=== PATIENT | female | born 1995 | race Caucasian/White ===

== ENCOUNTER 2018-01-04 08:20 | Emergency (ER) | payer SELFPAY ==
[2018-01-04] MEDS ORDERED: Ibuprofen 600 MG Tab PO ONE (08:35)
--- NOTE | 2018-01-04 08:37 | EDM.PDOC ---
ED HPI GENERAL MEDICAL PROBLEM - General Chief Complaint: Lower Extremity Injury/Pain Stated Complaint: L LEG INJURY Time Seen by Provider: 01/04/18 08:35 Source of Information: Reports: Patient History Limitations: Reports: No Limitations - History of Present Illness INITIAL COMMENTS - FREE TEXT/NARRATIVE: History of present illness: []Patient twisted her knee and dislocated her patella prior to arrival. Patient states she has done this in the past. Patient arrives by ambulance awake and alert complaining of left knee pain, she denies any other injuries. Review of systems: As per history of present illness and below otherwise all systems reviewed and negative. Past medical history: As per history of present illness and as reviewed below otherwise noncontributory. Surgical history: As per history of present illness and as reviewed below otherwise noncontributory. Social history: No reported history of drug or alcohol abuse. Family history: As per history of present illness and as reviewed below otherwise noncontributory. Physical exam: General: Well developed, well nourished in NAD HEENT: Atraumatic, normocephalic, pupils reactive, negative for conjunctival pallor or scleral icterus, mucous membranes moist, throat clear, neck supple, nontender, trachea midline. Lungs: Clear to auscultation, breath sounds equal bilaterally, chest nontender. Heart: S1S2, regular, negative for clicks, rubs, or JVD. Abdomen: Soft, nondistended, nontender. Negative for masses or hepatosplenomegaly. Negative for costovertebral tenderness. Pelvis: Stable nontender. Genitourinary: Deferred. Rectal: Deferred. Extremities: Atraumatic, negative for cords or calf pain. Neurovascular unremarkable. Neuro: Awake, alert, oriented. Cranial nerves II through XII unremarkable. Cerebellum unremarkable. Motor and sensory unremarkable throughout. Exam nonfocal. Diagnostics: []Labs and urine all negative Therapeutics: [] Impression: []Dehydration Plan: []Increase fluids follow-up with PMD Motrin for pain. Definitive disposition and diagnosis as appropriate pending reevaluation and review of above. Treatments [employer]TY COOK: Reports: Other (see below) Other Treatments FOREIGN [employer] SPECIALTY COOK: L knee immobilization Left Knee Pain Score (Numeric/FACES): 8 - Related Data Allergies Allergy/AdvReac Type Severity Reaction Status Date / Time No Known Allergies Allergy Verified 01/04/18 08:30 Home Meds: Home Meds Ranitidine HCl [Ranitidine] 150 mg PO DAILY 01/04/18 [History] Review of Systems - Review of Systems Review Of Systems: See Below (See history of present illness) ED EXAM, GENERAL - Physical Exam Exam: See Below (See history of present illness) Course - Vital Signs Last Recorded V/S: Last Vital Signs Temp 97.6 F 01/04/18 08:29 Pulse 70 01/04/18 08:29 Resp 18 01/04/18 08:29 BP 135/74 01/04/18 08:29 Pulse Ox 100 01/04/18 08:29 - Orders/Labs/Meds Orders: Active Orders 24 hr Category Date Time Status Splinting [RC] ASDIRECTED Care 01/04/18 08:35 Active Knee 3V Lt [CR] Stat Exams 01/04/18 08:35 Ordered Meds: Medications Discontinued Medications Generic Name Dose Route Start Last Admin Trade Name Freq PRN Reason Stop Dose Admin Ibuprofen 600 mg 01/04/18 08:35 01/04/18 08:40 Motrin PO 01/04/18 08:36 600 mg ONETIME ONE Administration Departure - Departure Time of Disposition: 09:10 Disposition: Home, Self-Care 01 Condition: Good Clinical Impression: Dehydration - Discharge Information Forms: ED Department Discharge Additional Instructions: The following information is given to patients seen in the emergency department who are being discharged to home. This information is to outline your options for follow-up care. We provide all patients seen in our emergency department with a follow-up referral. The need for follow-up, as well as the timing and circumstances, are variable depending upon the specifics of your emergency department visit. If you don't have a primary care physician on staff, we will provide you with a referral. We always advise you to contact your personal physician following an emergency department visit to inform them of the circumstance of the visit and for follow-up with them and/or the need for any referrals to a consulting specialist. The emergency department will also refer you to a specialist when appropriate. This referral assures that you have the opportunity for follow-up care with a specialist. All of these measure are taken in an effort to provide you with optimal care, which includes your follow-up. Under all circumstances we always encourage you to contact your private physician who remains a resource for coordinating your care. When calling for follow-up care, please make the office aware that this follow-up is from your recent emergency room visit. If for any reason you are refused follow-up, please contact the [facility] Emergency Department at and asked to speak to the emergency department charge nurse. [facility] [address] [place] [id number] - My Orders Last 24 Hours: My Active Orders 01/04/18 08:35 Splinting [RC] ASDIRECTED Knee 3V Lt [CR] Stat - Assessment/Plan Last 24 Hours: My Active Orders 01/04/18 08:35 Splinting [RC] ASDIRECTED Knee 3V Lt [CR] Stat
--- NOTE | 2018-01-04 09:57 | CR ---
EXAMINATION: Left knee HISTORY: Pain COMPARISON: 06/16/2016 TECHNIQUE: 3 views FINDINGS/IMPRESSION: There is no acute osseous abnormality, dislocation, or fracture. Bone mineraliza tion and joint spaces are preserved. No soft tissue swelling or joint effusion.
== END 2018-01-04 10:50 | disposition home or self-care (01) ==
LOC: MW.ED 08:20
DX: S83.002A Unspecified subluxation of left patella, initial encounter (principal); E86.0 Dehydration; Z79.899 Other long term (current) drug therapy; X50.1XXA Overexertion from prolonged static or awkward postures, initial encounter
CPT/HCPCS: 73562; 99283; A9270

== ENCOUNTER 2021-05-26 07:56 | Emergency (ER) | payer BC ==
[2021-05-26] MEDS ORDERED: Sodium Chloride 0.9% 2.5 ML Syringe FLUSH PRN (08:33)
[2021-05-26] MEDS ORDERED: Ketorolac 15 MG/ML SDV IVPUSH ONE (08:33)
[2021-05-26] MEDS ORDERED: fentaNYL 50 MCG/ML SDV IVPUSH ONE ×2 (08:33→10:20)
[2021-05-26] MEDS ORDERED: Sodium Chloride 0.9% 10 ML Syringe FLUSH PRN (08:33)
[2021-05-26] MEDS ORDERED: Ondansetron 4 MG/2 ML SDV IVPUSH ONE (08:33)
[2021-05-26] MEDS ORDERED: Sodium Chloride 0.9% 1,000 ML IV ONE (08:33)
--- NOTE | 2021-05-26 08:38 | EDM.PDOC ---
ED HPI GENERAL MEDICAL PROBLEM - General Chief Complaint: Abdominal Pain Stated Complaint: SEVERE ABDOMINAL PAIN Time Seen by Provider: 05/26/21 08:27 - History of Present Illness INITIAL COMMENTS - FREE TEXT/NARRATIVE: HISTORY AND PHYSICAL: History of present illness: This is a 25-year-old female with no significant past medical history who presents to the ER today secondary to pain in her upper abdomen that started yesterday at approximately 5 AM when she woke up. Patient reports that she went to see her PCP yesterday and they abdoulaye blood tests on her and told her that her liver enzymes were slightly elevated. Patient reports that her pain had improved and then woke up this morning again with severe pain to her upper abdomen. Patient reports that she was told by her primary care doctor yesterday that it was either inflammation in her stomach or gas. Patient denies any recent fevers, shakes, chills. Patient reports nausea with no vomiting or diarrhea. Patient denies any dysuria, frequency, urgency, chest pain, shortness of breath. Patient denies any change in color of her stools or urine. Patient reports that last p.o. intake was yesterday evening when she ate pizza rolls and ice cream prior to going to sleep. Patient denies any history of hypertension, diabetes, liver, lung, kidney problems. Patient denies any abdominal or chest surgeries in the past. Patient has no known drug allergies. Patient reports that she utilizes medicinal marijuana but denies any alcohol or drug use. Review of systems: As per history of present illness and below otherwise all systems reviewed and negative. Past medical history: As per history of present illness and as reviewed below otherwise noncontributory. Surgical history: As per history of present illness and as reviewed below otherwise noncontributory. Social history: No reported history of drug abuse. Family history: As per history of present illness and as reviewed below otherwise noncontributory. Physical exam: This patient was seen and evaluated during the 2019 SARS-CoV-2 novel coronavirus pandemic period. Community viral transmission is ongoing at time of this encounter and the emergency department is operating under pandemic response procedures. Constitutional: Patient is oriented to person, place, and time. Appears well- developed and well-nourished. No distress. HEENT: Moist mucous membranes Head: Normocephalic and atraumatic Eyes: Right eye exhibits no discharge. Left eye exhibits no discharge. No scleral icterus Neck: Normal range of motion. No tracheal deviation present. Cardiovascular: Normal rate and regular rhythm. Pulmonary: Effort normal, no respiratory distress. Abd: Soft, nondistended, no rebound/guarding, no psoas or obturator signs, no tenderness at Mcberney's point, no Wright's sign. Pt does not present with an exam that would be consistent with an acute surgical abdomen at this time. Patient with tenderness palpation to her right upper quadrant but no distinct Wright sign is appreciable. Musculoskeletal: Normal range of motion Neurologic: Alert and oriented to person, place and time. Skin: Urania, warm and dry. Psychiatric: Normal mood and affect. Behavior is normal. Judgment and thought content normal. Nursing note and vital signs have been reviewed Diagnostics: Ultrasound right upper quadrant: Cholelithiasis no other findings of acute cholecystitis. No bile duct dilatation. Labs all within normal limits except elevated ALT/AST. Therapeutics: [] Assessment and plan: This is a 25-year-old female who presents to the ER today with complaint of abdominal pain and on exam patient does have significant right upper quadrant pain without a Wright sign. Patient's presentation appears to be consistent with likely biliary colic. Patient will have a CBC, CMP, lipase and an ultrasound of the right upper quadrant performed. Patient will be given IV fluids, Zofran, Toradol, fentanyl to assist with her pain and discomfort prior to the ultrasound. 10:30 AM: Patient has been reevaluated by me. Patient reports that she had significant improvement in her pain and discomfort after the injections however she reports that she is starting to feel the pain returning again. I have discussed with the patient the results of the ultrasound and her labs. We will add an acute hepatitis panel secondary to her elevated ALT and AST. Although this may be related to her biliary colic I am concerned that other causes such as viral hepatitis might be a culprit. This test is a send out so I have informed the patient that she should follow-up with her primary care physician once again in order to obtain the results and follow-up of her hepatitis panel. At this time, I do not feel that the patient will require inpatient or observation level of care in the hospital and can be managed as an outpatient for her biliary colic. We will send the patient home with a prescription for nausea medicine as well as Bentyl and pain medications to assist with her biliary colic and will refer her to see our general surgeon for outpatient management and potential elective surgical intervention as needed. Reassessment at the time of disposition demonstrates that the patient is in no acute distress. The patient has remained stable throughout the entire ED visit and is without objective evidence for acute process requiring urgent intervention or hospitalization. The patient is stable for discharge, counseling is provided as documented above, discussed symptomatic treatment and specific conditions for return. I have spoken with the patient/caregiver and discussed todays findings, in addition to providing specific details for the plan of care. Questions are answered and there is agreement with the plan. Definitive disposition and diagnosis as appropriate pending reevaluation and review of above. right upper abdominal quaddrant Pain Score (Numeric/FACES): 8 - Related Data Allergies Allergy/AdvReac Type Severity Reaction Status Date / Time No Known Allergies Allergy Verified 05/26/21 08:24 Home Meds: Home Meds . 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: patient states she was told she had ovarian cysts Musculoskeletal History: Reports: Other (See Below) Other Musculoskeletal History: frequent L knee dislocation Neurological History: Reports: None Psychiatric History: Reports: None Endocrine/Metabolic History: Reports: None Hematologic History: Reports: None Immunologic History: Reports: None Oncologic (Cancer) History: Reports: None Dermatologic History: Reports: None - Infectious Disease History Infectious Disease History: Reports: None - Past Surgical History Head Surgeries/Procedures: Reports: None HEENT Surgical History: Reports: Tonsillectomy Social & Family History - Family History Family Medical History: No Pertinent Family History - Tobacco Use Tobacco Use Status *Q: Never Tobacco User Second Hand Smoke Exposure: No - Caffeine Use Caffeine Use: Reports: None - Recreational Drug Use Recreational Drug Use: No ED ROS GENERAL - Review of Systems Review Of Systems: See Below ED EXAM, GENERAL - Physical Exam Exam: See Below Course - Vital Signs Last Recorded V/S: Last Vital Signs Temp 97.1 F 05/26/21 08:19 Pulse 68 05/26/21 08:19 Resp 18 06/30/21 08:19 BP 152/87 H 05/26/21 08:19 Pulse Ox 98 05/26/21 08:19 - Orders/Labs/Meds Orders: Active Orders 24 hr Category Date Time Status HEPATITIS PANEL (4) [REF] Stat Lab 05/26/21 10:47 Received Sodium Chloride 0.9% [Saline Flush] Med 05/26/21 08:33 Active 10 ml FLUSH ASDIRECTED PRN Sodium Chloride 0.9% [Saline Flush] Med 05/26/21 08:33 Active 2.5 ml FLUSH ASDIRECTED PRN Saline Lock Insert [OM.PC] Stat Oth 05/26/21 08:33 Ordered Medication Orders Sodium Chloride (Sodium Chloride 0.9% 10 Ml Syringe) 10 ml FLUSH ASDIRECTED PRN PRN Reason: Keep Vein Open Last Admin: 05/26/21 08:41 Dose: 10 ml Documented by: BROOKE Sodium Chloride (Sodium Chloride 0.9% 2.5 Ml Syringe) 2.5 ml FLUSH ASDIRECTED PRN PRN Reason: Keep Vein Open Last Admin: 05/26/21 08:41 Dose: 2.5 ml Documented by: BROOKE Labs: Laboratory Tests 05/26/21 05/26/21 05/26/21 Range/Units 08:24 08:24 08:24 WBC 7.03 (4.0-11.0) K/uL RBC 4.70 (4.30-5.90) M/uL Hgb 13.9 (12.0-16.0) g/dL Hct 42.3 (36.0-46.0) % MCV 90.0 (80.0-98.0) fL MCH 29.6 (27.0-32.0) pg MCHC 32.9 (31.0-37.0) g/dL RDW Std Deviation 41.9 (28.0-62.0) fl RDW Coeff of Serena 13 (11.0-15.0) % Plt Count 282 (150-400) K/uL MPV 11.00 (7.40-12.00) fL Neut % (Auto) 65.4 (48.0-80.0) % Lymph % (Auto) 24.8 (16.0-40.0) % Barren % (Auto) 9.2 (0.0-15.0) % Eos % (Auto) 0.3 (0.0-7.0) % Baso % (Auto) 0.3 (0.0-1.5) % Neut # (Auto) 4.6 (1.4-5.7) K/uL Lymph # (Auto) 1.7 (0.6-2.4) K/uL Barren # (Auto) 0.7 (0.0-0.8) K/uL Eos # (Auto) 0.0 (0.0-0.7) K/uL Baso # (Auto) 0.0 (0.0-0.1) K/uL Nucleated RBC % 0.0 /100WBC Nucleated RBCs # 0 K/uL Sodium 140 (136-145) mmol/L Potassium 4.1 (3.5-5.1) mmol/L Chloride 104 (98-107) mmol/L Carbon Dioxide 26.2 (21.0-32.0) mmol/L BUN 9 (7.0-18.0) mg/dL Creatinine 0.8 (0.6-1.0) mg/dL Est Cr Clr Drug Dosing 104.54 mL/min Estimated GFR (MDRD) > 60.0 ml/min Glucose 107 H (74-106) mg/dL Calcium 8.6 (8.5-10.1) mg/dL Total Bilirubin 1.0 (0.2-1.0) mg/dL AST 419 H (15-37) IU/L ALT 510 H (14-63) IU/L Alkaline Phosphatase 103 (46-116) U/L Total Protein 7.7 (6.4-8.2) g/dL Albumin 3.6 (3.4-5.0) g/dL Globulin 4.1 H (2.6-4.0) g/dL Albumin/Globulin Ratio 0.9 (0.9-1.6) Lipase 98 (73-393) U/L HCG, Qual NEGATIVE (NEG) Urine Color Urine Appearance Urine pH (5.0-8.0) Ur Specific Hobson (1.001-1.035) Urine Protein (NEGATIVE) mg/dL Urine Glucose (UA) (NEGATIVE) mg/dL Urine Ketones (NEGATIVE) mg/dL Urine Occult Blood (NEGATIVE) Urine Nitrite (NEGATIVE) Urine Bilirubin (NEGATIVE) Urine Ictotest Urine Urobilinogen (<2.0) EU/dL Ur Leukocyte Esterase (NEGATIVE) Urine RBC (0-2/HPF) Urine WBC (0-5/HPF) Ur Epithelial Cells (NONE-FEW) Amorphous Sediment (NEGATIVE) Urine Bacteria (NEGATIVE) Urine Mucus (NONE-MOD) 05/26/21 Range/Units 09:42 WBC (4.0-11.0) K/uL RBC (4.30-5.90) M/uL Hgb (12.0-16.0) g/dL Hct (36.0-46.0) % MCV (80.0-98.0) fL MCH (27.0-32.0) pg MCHC (31.0-37.0) g/dL RDW Std Deviation (28.0-62.0) fl RDW Coeff of Serena (11.0-15.0) % Plt Count (150-400) K/uL MPV (7.40-12.00) fL Neut % (Auto) (48.0-80.0) % Lymph % (Auto) (16.0-40.0) % Barren % (Auto) (0.0-15.0) % Eos % (Auto) (0.0-7.0) % Baso % (Auto) (0.0-1.5) % Neut # (Auto) (1.4-5.7) K/uL Lymph # (Auto) (0.6-2.4) K/uL Barren # (Auto) (0.0-0.8) K/uL Eos # (Auto) (0.0-0.7) K/uL Baso # (Auto) (0.0-0.1) K/uL Nucleated RBC % /100WBC Nucleated RBCs # K/uL Sodium (136-145) mmol/L Potassium (3.5-5.1) mmol/L Chloride (98-107) mmol/L Carbon Dioxide (21.0-32.0) mmol/L BUN (7.0-18.0) mg/dL Creatinine (0.6-1.0) mg/dL Est Cr Clr Drug Dosing mL/min Estimated GFR (MDRD) ml/min Glucose (74-106) mg/dL Calcium (8.5-10.1) mg/dL Total Bilirubin (0.2-1.0) mg/dL AST (15-37) IU/L ALT (14-63) IU/L Alkaline Phosphatase (46-116) U/L Total Protein (6.4-8.2) g/dL Albumin (3.4-5.0) g/dL Globulin (2.6-4.0) g/dL Albumin/Globulin Ratio (0.9-1.6) Lipase (73-393) U/L HCG, Qual (NEG) Urine Color ORANGE Urine Appearance CLOUDY Urine pH 6.0 (5.0-8.0) Ur Specific Hobson 1.025 (1.001-1.035) Urine Protein NEGATIVE (NEGATIVE) mg/dL Urine Glucose (UA) NEGATIVE (NEGATIVE) mg/dL Urine Ketones NEGATIVE (NEGATIVE) mg/dL Urine Occult Blood LARGE H (NEGATIVE) Urine Nitrite NEGATIVE (NEGATIVE) Urine Bilirubin SMALL H (NEGATIVE) Urine Ictotest POSITIVE Urine Urobilinogen 1.0 (<2.0) EU/dL Ur Leukocyte Esterase NEGATIVE (NEGATIVE) Urine RBC 15-17 (0-2/HPF) Urine WBC 0-1 (0-5/HPF) Ur Epithelial Cells FEW (NONE-FEW) Amorphous Sediment LIGHT (NEGATIVE) Urine Bacteria 2+ H (NEGATIVE) Urine Mucus LIGHT (NONE-MOD) Meds: Medications Generic Name Dose Route Start Last Admin Trade Name Freq PRN Reason Stop Dose Admin Sodium Chloride 10 ml 05/26/21 08:33 05/26/21 08:41 Sodium Chloride 0.9% 10 Ml Syringe FLUSH 10 ml ASDIRECTED PRN Administration Keep Vein Open Sodium Chloride 2.5 ml 05/26/21 08:33 05/26/21 08:41 Sodium Chloride 0.9% 2.5 Ml Syringe FLUSH 2.5 ml ASDIRECTED PRN Administration Keep Vein Open Discontinued Medications Generic Name Dose Route Start Last Admin Trade Name Freq PRN Reason Stop Dose Admin Dicyclomine HCl 10 mg 05/26/21 10:21 Dicyclomine 10 Mg Cap PO 05/26/21 10:22 ONETIME ONE Fentanyl 50 mcg 05/26/21 08:33 05/26/21 08:40 Fentanyl 50 Mcg/Ml Sdv IVPUSH 05/26/21 08:34 50 mcg ONETIME ONE Administration Fentanyl 50 mcg 05/26/21 10:20 Fentanyl 50 Mcg/Ml Sdv IVPUSH 05/26/21 10:21 ONETIME ONE Sodium Chloride 1,000 mls @ 999 mls/hr 05/26/21 08:33 05/26/21 08:40 Normal Saline IV 05/26/21 09:33 999 mls/hr .Bolus ONE Administration Ketorolac Tromethamine 15 mg 05/26/21 08:33 05/26/21 08:40 Ketorolac 15 Mg/Ml Sdv IVPUSH 05/26/21 08:34 15 mg ONETIME ONE Administration Ketorolac Tromethamine 15 mg 05/26/21 10:20 05/26/21 10:57 Ketorolac 15 Mg/Ml Sdv IVPUSH 05/26/21 10:21 15 mg Q6H STA Administration Ondansetron HCl 4 mg 05/26/21 08:33 05/26/21 08:41 Ondansetron 4 Mg/2 Ml Sdv IVPUSH 05/26/21 08:34 4 mg ONETIME ONE Administration Departure - Departure Time of Disposition: 11:04 Disposition: Home, Self-Care 01 Condition: Good Clinical Impression: Biliary colic, Elevated transaminase level Abdominal pain Qualifiers: Abdominal location: right upper quadrant Qualified Code(s): R10.11 - Right upper quadrant pain - Discharge Information Instructions: Biliary Colic, Adult, Abdominal Pain, Adult Referrals: Marily Rangel MD [Primary Care Provider] - Forms: ED Department Discharge Additional Instructions: Your seen and evaluated in the ER today secondary to pain to your right upper quadrant which appears to be secondary to gallstones within your gallbladder. You will be given the phone number to call tomorrow for an appointment to see one of the surgery doctor so they can follow you and make recommendations for possible surgical intervention. As we discussed, your liver enzymes are elevated so a acute hepatitis panel has been sent to determine whether or not you might have hepatitis A, B, C. Please make an appointment see your family doctor within the next week so they can reevaluate your abdominal pain and follow-up on your hepatitis panel as well. You will be given a prescription for nausea medicine as well as pain medicine to take to assist you with your symptoms. As we discussed, please avoid any greasy or fatty foods over the next several days to assist with the discomfort that you are having. [facility] - General Surgery Professional Building [address] [place] [address], [address] [place] [address] The following information is given to patients seen in the emergency department who are being discharged to home. This information is to outline your options for follow-up care. We provide all patients seen in our emergency department with a follow-up referral. The need for follow-up, as well as the timing and circumstances, are variable depending upon the specifics of your emergency department visit. If you don't have a primary care physician on staff, we will provide you with a referral. We always advise you to contact your personal physician following an emergency department visit to inform them of the circumstance of the visit and for follow-up with them and/or the need for any referrals to a consulting specialist. The emergency department will also refer you to a specialist when appropriate. This referral assures that you have the opportunity for follow-up care with a specialist. All of these measure are taken in an effort to provide you with optimal care, which includes your follow-up. Under all circumstances we always encourage you to contact your private physician who remains a resource for coordinating your care. When calling for follow-up care, please make the office aware that this follow-up is from your recent emergency room visit. If for any reason you are refused follow-up, please contact the [facility] Emergency Department at and asked to speak to the emergency department charge nurse. [facility] - Primary Care [address] [place] [id number] [facility] [address] [place] [id number] Sepsis Event Note (ED) - Evaluation Sepsis Screening Result: No Definite Risk - Focused Exam Vital Signs: Vital Signs Temp Pulse Resp BP Pulse Ox 05/26/21 08:19 97.1 F 68 18 152/87 H 98 - My Orders Last 24 Hours: My Active Orders 05/26/21 08:33 Sodium Chloride 0.9% [Saline Flush] 10 ml FLUSH ASDIRECTED PRN Sodium Chloride 0.9% [Saline Flush] 2.5 ml FLUSH ASDIRECTED PRN Saline Lock Insert [OM.PC] Stat 05/26/21 10:47 HEPATITIS PANEL (4) [REF] Stat - Assessment/Plan Last 24 Hours: My Active Orders 05/26/21 08:33 Sodium Chloride 0.9% [Saline Flush] 10 ml FLUSH ASDIRECTED PRN Sodium Chloride 0.9% [Saline Flush] 2.5 ml FLUSH ASDIRECTED PRN Saline Lock Insert [OM.PC] Stat 05/26/21 10:47 HEPATITIS PANEL (4) [REF] Stat
[2021-05-26 09:09] LABS: BLOOD UREA NITROGEN,BUN 9 mg/dL (7.0-18.0); CARBON DIOXIDE,CO2 26.2 mmol/L (21.0-32.0); CHLORIDE,CL 104 mmol/L (98-107); GLUCOSE RANDOM 107 mg/dL (74-106); LIPASE 98 U/L (73-393); POTASSIUM,K 4.1 mmol/L (3.5-5.1); SODIUM,NA 140 mmol/L (136-145)
--- NOTE | 2021-05-26 09:39 | US ---
HISTORY: Right upper quadrant pain. TECHNIQUE: Ultrasound of the right upper quadrant. COMPARISON: None. FINDINGS: Liver has normal echogenicity. No liver mass. No intrahepatic bile duct dilation. Cholelithiasis. No gallbladder wall thickening or pericholecystic fluid. Common duct measures 4 mm in caliber, within normal limits. Pancreas is not well visualized. Right kidney measures 10.8 cm long axis. Normal renal parenchymal thickness and echogenicity. No renal mass. No hydronephrosis. IMPRESSION: Cholelithiasis. No other findings of acute cholecystitis. No bile duct dilation. Dictated by Rakesh Moura MD @ 05/26/2021 9:38:[address] Rakesh Moura @ May 26 2021 9:38AM
[2021-05-26] MEDS ORDERED: Ketorolac 15 MG/ML SDV IVPUSH STA (10:20)
[2021-05-26] MEDS ORDERED: Dicyclomine 10 MG Cap PO ONE (10:21)
== END 2021-05-26 12:02 | disposition home or self-care (01) ==
LOC: MW.ED 07:56
DX: K80.50 Calculus of bile duct without cholangitis or cholecystitis without obstruction (principal); R74.01 Elevation of levels of liver transaminase levels
CPT/HCPCS: 36415; 76705; 80053; 80074; 81001; 83690; 84703; 85025; 96374; 96375; 96376; 99284; A9270; J1885; J2405; J3010; J7030

== ENCOUNTER 2021-06-22 08:03 | Day surgery (SDC) | payer BC ==
--- NOTE | 2021-06-22 07:42 | PCM.PREANE ---
Preanesthetic Assessment - Anesthesia/Transfusion/Family Hx Anesthesia History: Prior Anesthesia Without Reaction Transfusion History: No Prior Transfusion(s) - Review of Systems General: No Symptoms Pulmonary: No Symptoms Cardiovascular: No Symptoms Gastrointestinal: Abdominal Pain Neurological: No Symptoms Other: Reports: None - Physical Assessment NPO Status Date: 06/22/21 NPO Status Time: 00:00 Height: 5 ft 7 in Weight: 278 lb ASA Class: 3 Mental Status: Alert & Oriented x3 Airway Class: Mallampati = 2 Dentition: Reports: Normal Dentition ROM/Head Extension: Full Lungs: Clear to Auscultation, Normal Respiratory Effort Cardiovascular: Regular Rate, Regular Rhythm - Allergies Allergies/Adverse Reactions: Allergies Allergy/AdvReac Type Severity Reaction Status Date / Time No Known Allergies Allergy Verified 06/16/21 11:57 - Anesthesia Plan Pre-Op Medication Ordered: Other (scopolamine) - Acknowledgements Anesthesia Type Planned: General Anesthesia Pt an Appropriate Candidate for the Planned Anesthesia: Yes Alternatives and Risks of Anesthesia Discussed w Pt/Guardian: Yes Pt/Guardian Understands and Agrees with Anesthesia Plan: Yes PreAnesthesia Questionnaire - Past Health History Medical/Surgical History: Denies Medical/Surgical History HEENT History: Reports: Allergic Rhinitis, Other (See Below) Other HEENT History: has dental braces Cardiovascular History: Reports: None Respiratory History: Reports: None Gastrointestinal History: Reports: Cholelithiasis, GERD Other Gastrointestinal History: symptomatic cholelithiasis Genitourinary History: Reports: None 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 (See Below) Other OB/BYN History: patient states she was told she had ovarian cysts Musculoskeletal History: Reports: Other (See Below) Other Musculoskeletal History: chronic left knee pain Neurological History: Reports: None Psychiatric History: Reports: Anxiety, Depression Endocrine/Metabolic History: Reports: Obesity/BMI 30+ Hematologic History: Reports: None Immunologic History: Reports: None Oncologic (Cancer) History: Reports: None Dermatologic History: Reports: None - Infectious Disease History Infectious Disease History: Reports: None - Past Surgical History Head Surgeries/Procedures: Reports: None HEENT Surgical History: Reports: Tonsillectomy Cardiovascular Surgical History: Reports: None Respiratory Surgical History: Reports: None GI Surgical History: Reports: None Female Surgical History: Reports: None Endocrine Surgical History: Reports: None Neurological Surgical History: Reports: None Musculoskeletal Surgical History: Reports: None Oncologic Surgical History: Reports: None Dermatological Surgical History: Reports: None - SUBSTANCE USE Tobacco Use Within Last Twelve Months: Other (See Below) Recreational Drug Type: Reports: Marijuana/Hashish - HOME MEDS Home Medications: Home Meds Ondansetron [Zofran ODT] 4 mg PO Q6H PRN #12 tab.dis 05/26/21 [Rx] Pantoprazole Sodium [Protonix] 40 mg PO DAILY 06/16/21 [History] norgestimate-ethinyl estradioL [Hendry-Linyah 28 Tablet] 1 tab PO DAILY 06/16/21 [History] - CURRENT (IN HOUSE) MEDS Current Meds: Current Medications Albuterol (Albuterol 0.083% 2.5 Mg/3 Ml Neb Soln) 2.5 mg NEB ONETIME PRN PRN Reason: Wheezing Droperidol (Droperidol 5 Mg/2 Ml Sdv) 0.625 mg IVPUSH ONETIME PRN PRN Reason: Nausea/Vomiting Fentanyl (Fentanyl 100 Mcg/2 Ml Sdv) 50 mcg IVPUSH Q5M PRN PRN Reason: Pain (mild 1-3) Hydromorphone HCl (Hydromorphone 2 Mg/Ml Syringe) 1 mg IVPUSH Q10M PRN PRN Reason: Pain (moderate 4-6) Lactated Ringer's (Ringers, Lactated) 1,000 mls @ 125 mls/hr IV ASDIRECTED SANTI Metoclopramide HCl (Metoclopramide 10 Mg/2 Ml Sdv) 10 mg IVPUSH ONETIME PRN PRN Reason: Nausea/Vomiting Morphine Sulfate (Morphine 10 Mg/Ml Syringe) 2 mg IVPUSH Q10M PRN PRN Reason: Pain (severe 7-10) Naloxone HCl (Naloxone 0.4 Mg/Ml Syringe) 0.1 mg IVPUSH ASDIRECTED PRN PRN Reason: Respiratory Depression Ondansetron HCl (Ondansetron 4 Mg/2 Ml Sdv) 4 mg IVPUSH ONETIME PRN PRN Reason: Nausea/Vomiting Sodium Chloride (Sodium Chloride 0.9% 2.5 Ml Syringe) 2.5 ml FLUSH ASDIRECTED PRN PRN Reason: Keep Vein Open Sodium Chloride (Sodium Chloride 0.9% 10 Ml Sdv) 10 ml IV ASDIRECTED PRN PRN Reason: IV Use Sodium Chloride (Sodium Chloride 0.9% 10 Ml Syringe) 10 ml FLUSH ASDIRECTED PRN PRN Reason: Keep Vein Open Sodium Chloride (Sodium Chloride 0.9% 2.5 Ml Syringe) 2.5 ml FLUSH ASDIRECTED PRN PRN Reason: Keep Vein Open Sodium Chloride (Sodium Chloride 0.9% 10 Ml Syringe) 10 ml FLUSH ASDIRECTED PRN PRN Reason: Keep Vein Open Discontinued Medications Cefazolin Sodium/Dextrose 2 gm (/ Premix) 50 mls @ 100 mls/hr IV ONETIME ONE Stop: 06/21/21 09:38 Scopolamine (Scopolamine 1.5 Mg Transdermal Patch) Confirm Administered Dose 1.5 mg .ROUTE .STK-MED ONE Stop: 06/22/21 07:10
[~2021-06-22 08:03] MED LIST: Albuterol 0.083% 2.5 MG/3 ML Neb Soln NEB PRN; HYDROmorphone 2 MG/ML Syringe IVPUSH PRN; Lactated Ringers 1,000 ML IV SCH; Metoclopramide 10 MG/2 ML SDV IVPUSH PRN; Morphine 2 MG/ML SYRINGE IVPUSH PRN; Naloxone 0.4 MG/ML Syringe IVPUSH PRN; Ondansetron 4 MG/2 ML SDV IVPUSH PRN; Scopolamine 1.5 MG Transdermal Patch ONE; Sodium Chloride 0.9% 10 ML SDV IV PRN; Sodium Chloride 0.9% 10 ML Syringe FLUSH PRN; Sodium Chloride 0.9% 2.5 ML Syringe FLUSH PRN; ceFAZolin 2 GM in Premix Bag 1 BAG IV ONE; fentaNYL 100 MCG/2 ML SDV IVPUSH PRN
[2021-06-22] MEDS ORDERED: Dexamethasone 4 MG/ML 5 ML MDV ONE (08:08)
[2021-06-22] MEDS ORDERED: Lidocaine 2% 5 ML SDV ONE (08:08)
[2021-06-22] MEDS ORDERED: Rocuronium Bromide 50 MG/5 ML Syringe ONE (08:08)
[2021-06-22] MEDS ORDERED: Ondansetron 4 MG/2 ML SDV ONE ×2 (08:08→11:28)
[2021-06-22] MEDS ORDERED: Succinylcholine/Sod PF 100 MG/5 ML SYRINGE IV ONE (08:08)
[2021-06-22] MEDS ORDERED: Sodium Chloride 0.9% 20 ML ONE (08:09)
[2021-06-22] MEDS ORDERED: ceFAZolin 1 GM Vial ONE (08:09)
[2021-06-22] MEDS ORDERED: Propofol 200 MG/20 ML SDV ONE (08:16)
[2021-06-22] MEDS ORDERED: Midazolam 1 MG/ML 2 ML SDV ONE (08:16)
[2021-06-22] MEDS ORDERED: Bupivacaine 0.5% 30 ML SDV ONE (08:16)
[2021-06-22] MEDS ORDERED: fentaNYL 100 MCG/2 ML SDV ONE ×2 (08:16→10:56)
[2021-06-22] MEDS ORDERED: Octyl 2-Cyanoacrylate 1 Tube ONE (08:16)
[2021-06-22] MEDS ORDERED: Acetaminophen 1,000 MG in Premix Bag 1 BAG IV ONE (09:58)
[2021-06-22] MEDS ORDERED: Indocyanine Green 25 MG SDV ONE (10:11)
[2021-06-22] MEDS ORDERED: Ketorolac 30 MG/ML SDV ONE ×2 (10:35→11:26)
[2021-06-22] MEDS ORDERED: Sugammadex Sodium 200 MG/2 ML VIAL ONE (11:33)
--- NOTE | 2021-06-22 12:09 | PCM.OPNOTE ---
- General Post-Op/Procedure Note Date of Surgery/Procedure: 06/22/21 Operative Procedure(s): Laparoscopic cholecystectomy Findings: Gallbladder with adhesions to surrounding omentum Pre Op Diagnosis: Symptomatic cholelithiasis Post-Op Diagnosis: same Anesthesia Technique: General ET Tube Primary Surgeon: Coral Mcintyre Fluid Replacement, Intraop: 1,400 Output, Urine Amount: 280 EBL in mLs: 10 Condition: Good
--- NOTE | 2021-06-22 12:47 | PCM48HPAN ---
Post Anesthesia Note - EVALUATION WITHIN 48HRS OF ANESTHETIC Vital Signs in Normal Range: Yes Patient Participated in Evaluation: Yes Respiratory Function Stable: Yes Airway Patent: Yes Cardiovascular Function Stable: Yes Hydration Status Stable: Yes Pain Control Satisfactory: Yes Nausea and Vomiting Control Satisfactory: Yes Mental Status Recovered: Yes Vital Signs: Last Vital Signs Temp 96.4 F L 06/22/21 11:55 Pulse 73 06/22/21 12:30 Resp 14 06/22/21 12:30 BP 115/65 06/22/21 12:30 Pulse Ox 95 06/22/21 12:30
--- NOTE | 2021-06-22 12:47 | PCM.POSTAN ---
POST ANESTHESIA ASSESSMENT - MENTAL STATUS Mental Status: Alert, Oriented - VITAL SIGNS Vital Signs: Last Vital Signs Temp 96.4 F L 06/22/21 11:55 Pulse 73 06/22/21 12:30 Resp 14 06/22/21 12:30 BP 115/65 06/22/21 12:30 Pulse Ox 95 06/22/21 12:30 - RESPIRATORY Respiratory Status: Respiratory Rate WNL, Airway Patent, O2 Saturation Stable - CARDIOVASCULAR CV Status: Pulse Rate WNL, Blood Pressure Stable - GASTROINTESTINAL GI Status: No Symptoms - POST OP HYDRATION Hydration Status: Adequate & Stable
--- NOTE | 2021-06-22 18:48 | OR ---
SURGEON: CORAL MCINTYRE MD DATE OF PROCEDURE: 06/22/2021 PREOPERATIVE DIAGNOSIS: Symptomatic cholelithiasis. POSTOPERATIVE DIAGNOSIS: Symptomatic cholelithiasis. PROCEDURE PERFORMED: Laparoscopic cholecystectomy. PRIMARY SURGEON: Coral Mcintyre MD ANESTHESIA: General endotracheal anesthesia. FLUIDS: 1400 mL crystalloid. ESTIMATED BLOOD LOSS: 10 mL. URINE OUTPUT: 280 mL. FINDINGS: Normal-appearing gallbladder with omental adhesions to the body of the gallbladder. COMPLICATIONS: None. INDICATIONS: The patient is a 25-year-old female who presented to my clinic with increasing right upper quadrant abdominal pain. A recent ultrasound showed gallstones within the gallbladder. The patient was diagnosed with symptomatic cholelithiasis. I explained the need for a laparoscopic, possible open cholecystectomy. I explained the expected perioperative course as well as the risks including bleeding, infection, damage to surrounding structures. She verbalized understanding and wishes to proceed. PROCEDURE IN DETAIL: The patient was brought in to the OR and placed on the OR table in supine position. A time-out was completed verifying the patient's name, age, date of , allergies, and procedure to be performed. General endotracheal anesthesia was induced. The left arm was tucked at the patient's side and a Yoder catheter was placed. The abdomen was prepped and draped in usual standard fashion. I anesthetized the infraumbilical fold with 0.5% Marcaine plain. An 11-blade was used to make an incision along the infraumbilical fold. Cautery was used to dissect to the level of subcutaneous fat. I then bluntly dissected down to the fascia. The fascia was elevated with Kochers and incised sharply with curved Smith scissors. I then grasped the peritoneum and incised it sharply as well. Entry to the abdomen was palpated digitally. A 12 mm Juana trocar was placed in the abdomen and it was insufflated. The patient was placed into reverse Trendelenburg position and airplaned slightly to the left. 5 mm trocars were placed in the following locations under direct visualization; one in the epigastric area, one in the right flank, and one 2 fingerbreadths below the right subcostal margin in the midclavicular line. The dome of the gallbladder was grasped and elevated. There were some omental adhesions along the body of the gallbladder. These were taken down using blunt dissection with the suction device as well as hook cautery. I then grasped the proximal half of the gallbladder and began my dissection to obtain my critical view. Using a combination of blunt dissection and hook cautery, I was able to take down the adhesions around the cystic duct and artery. I then continued my dissection one- third of the way up the cystic plate. Once my critical view was achieved, a photograph was taken. I then doubly clipped and ligated my cystic duct and artery. Using hook cautery, I then took down the remainder of the attachments of the gallbladder to the cystic plate. The gallbladder was then placed in an EndoCatch bag and removed through the 12 mm port site. Photographs were taken of the cystic plate to show that there was no evidence of bile leakage and that the area was hemostatic. Given that there was minimal bleeding during the case, I did not need to do any irrigation. The 5 mm trocars were removed under direct visualization and the abdomen allowed to desufflate. The fascia at the infraumbilical port site was closed with interrupted 0 Vicryl sutures. The subcutaneous fat layer was closed with interrupted 3-0 Vicryl sutures. The skin was closed with a running 4-0 Monocryl stitch. The epigastric port site was closed with interrupted 3-0 Vicryl suture in the subcutaneous fat layer and the skin was closed with a running 4-0 Monocryl stitch. The remainder of the 5 mm trocar sites were closed with interrupted 4-0 Monocryl sutures. Dermabond and sterile dressings were applied. The patient tolerated the procedure well and was extubated and transferred to the PACU in stable condition. All counts were complete and correct at the end of the case. RADHA / LIV /[id number]
== END 2021-06-22 14:30 | disposition home or self-care (01) ==
LOC: MW.SDS 08:03
PROVIDERS: ATTEND Surgery
DX: K80.10 Calculus of gallbladder with chronic cholecystitis without obstruction (principal); G89.29 Other chronic pain; R74.01 Elevation of levels of liver transaminase levels; K21.9 Gastro-esophageal reflux disease without esophagitis; E66.9 Obesity, unspecified; Z98.890 Other specified postprocedural states; Z79.899 Other long term (current) drug therapy; Z68.27 Body mass index [BMI] 27.0-27.9, adult
CPT/HCPCS: 47562; 81025; A9270; J0330; J0690; J1100; J1170; J1790; J1885; J2250; J2405; J2704; J3010; J3490; J7120; 00790; 88304

== ENCOUNTER 2021-11-07 15:18 | Emergency (ER) | payer BC ==
--- NOTE | 2021-11-07 15:33 | EDM.PDOCBH ---
ED HPI GENERAL MEDICAL PROBLEM - General Stated Complaint: SUICIDE ATTEMPT Time Seen by Provider: 11/07/21 15:23 Source of Information: Reports: Patient History Limitations: Reports: No Limitations - History of Present Illness INITIAL COMMENTS - FREE TEXT/NARRATIVE: HISTORY AND PHYSICAL: History of present illness: Patient is a 25-year-old female who is brought to the emergency room by ambulance after concerns that the patient had made threats of suicidal ideation. Patient states she has increased anxiety and depression, does take medication for this. [facility]. States over the past few weeks she has had increased stressors due to financial burdens (car insurance/deducible) and family issues. Today her mom called her and was "saying terrible things to me". She got off the phone crying and her was concerned that she was going to harm herself. Patient denies any fever, chills, headache, change in vision, syncope or near syncope. Denies any chest pain, back pain, shortness of breath or cough. Denies any abdominal pain, nausea, vomiting, diarrhea, constipation or dysuria. Has not noted any blood in urine or stool. Patient has been eating and drinking appropriately. No recent travel or sick contacts. States she does smoke marijuana (has her medical card) but denies any alcohol or drug abuse. Review of systems: As per history of present illness and below otherwise all systems reviewed and negative. Past medical history: As per history of present illness and as reviewed below otherwise noncontributory. Surgical history: As per history of present illness and as reviewed below otherwise noncontributory. Social history: See social history for further information Family history: As per history of present illness and as reviewed below otherwise noncontributory. Physical exam: General: Well developed and well nourished 25 year old female. Alert and orientated x 3. Tearful, anxious, but nontoxic in appearance and in no acute distress. Vital signs are stable and have been reviewed by me. Nursing notes were reviewed. HEENT: Atraumatic, normocephalic, pupils equal and reactive bilaterally, negative for conjunctival pallor or scleral icterus, mucous membranes moist, TMs normal bilaterally, throat clear, neck supple, nontender, trachea midline. No drooling or trismus noted. No meningeal signs. No hot potato voice noted. Lungs: Clear to auscultation bilaterally. No wheezes, rales, or rhonchi. Chest nontender. Normal work of breathing, no accessory muscles used. Heart: S1S2, regular rate and rhythm without overt murmur, gallops, or rubs. No JVD. No peripheral edema Abdomen: Soft, nondistended, nontender. Normoactive bowel sounds. Negative for masses or costovertebral tenderness. Skin: Intact, warm, dry. No lesions or rashes noted. Hematologic: No petechiae or purpra. Mucosa appropriate color and normal nail bed color and refill. Extremities: Atraumatic, moves all extremities per self without difficulty or deficits, negative for cords or calf pain. Neurovascular unremarkable. Neuro: Awake, alert, oriented. Cranial nerves II through XII unremarkable. Cerebellum unremarkable. Motor and sensory unremarkable throughout. Exam nonfocal. Psychiatric: Mood and affect are appropriate. Normal thought process. Answering questions appropriately. Please note that the patient was seen and evaluated during the 2019 SARS-CoV-2 novel coronavirus pandemic period. Community viral transmission is ongoing at time of this encounter and the emergency department is operating under pandemic response procedures. Medical Decision Making: Patient is a 25-year-old female who presents to the emergency room with concerns of behavioral health problems. Patient has been going back and forth between saying she has a plan of self-harm and not being suicidal. She states that she could just get her medications adjusted she would be "okay". Due to patient going back and forth on her story will have [facility] come to evaluate her to see if she is appropriate for the CRU unit. 1545: Mnia manager social work from [facility] is here to talk with patient. The manager social work states that she has expressed to her she would have a plan of overdosing on sleeping/cough medication. Since patient has spoken with the manager social work she is much more agitated and crying. We will give her some medication to help alleviate anxiety/agitation. I have talked with the patient about today's findings, in addition to providing specific details for plan of care. Emergency committal will be placed on patient. 1800: [facility]: at capacity, no beds available. 1803: [facility]: at capacity, no beds available. 1805: [facility]: Spoke with Dr Pope, psychiatrist, who is agreeable to accepting this patient. Emergency committal paperwork and facesheet was faxed to the office. 191: [facility] has officially accepted this patient. Patient is sleeping on cot, breathes easily. Vital signs are stable. Diagnostics: CBC, CMP, COVID, Drug Screen ETOH, Acetaminophen, Salicylate, TSH, UA, HCGU Therapeutics: Ativan PO, Haldol, Ativan IM Impression: Suicidal ideation Depression Plan: Transfer to [facility] for mental health evaluation/hold Definitive disposition and diagnosis as appropriate pending reevaluation and review of above. - Related Data Allergies Allergy/AdvReac Type Severity Reaction Status Date / Time No Known Allergies Allergy Verified 11/07/21 15:29 Home Meds: Home Meds Desvenlafaxine Succinate [Pristiq ER] 100 mg PO DAILY 11/07/21 [History] QUEtiapine [SEROquel] 1 dose PO ASDIRECTED 11/07/21 [History] Past Medical History - Past Health History Medical/Surgical History: Denies Medical/Surgical History HEENT History: Reports: Allergic Rhinitis, Other (See Below) Other HEENT History: has dental braces Cardiovascular History: Reports: None Respiratory History: Reports: None Gastrointestinal History: Reports: Cholelithiasis, GERD Other Gastrointestinal History: symptomatic cholelithiasis Genitourinary History: Reports: None ENVELOPE PATTERNMAKER History: Reports: Other (See Below) Other ENVELOPE PATTERNMAKER History: patient states she was told she had ovarian cysts Musculoskeletal History: Reports: Other (See Below) Other Musculoskeletal History: chronic left knee pain Neurological History: Reports: None Psychiatric History: Reports: Anxiety, Depression Endocrine/Metabolic History: Reports: Obesity/BMI 30+ Hematologic History: Reports: None Immunologic History: Reports: None Oncologic (Cancer) History: Reports: None Dermatologic History: Reports: None - Infectious Disease History Infectious Disease History: Reports: None - Past Surgical History Head Surgeries/Procedures: Reports: None HEENT Surgical History: Reports: Tonsillectomy Cardiovascular Surgical History: Reports: None Respiratory Surgical History: Reports: None GI Surgical History: Reports: None Female Surgical History: Reports: None Endocrine Surgical History: Reports: None Neurological Surgical History: Reports: None Musculoskeletal Surgical History: Reports: None Oncologic Surgical History: Reports: None Dermatological Surgical History: Reports: None Social & Family History - Family History Family Medical History: No Pertinent Family History - Caffeine Use Caffeine Use: Reports: None ED ROS GENERAL - Review of Systems Review Of Systems: Comprehensive ROS is negative, except as noted in HPI. ED EXAM, BEHAVIORAL HEALTH - Physical Exam Exam: See Below (See dictation) COURSE, BEHAVIORAL HEALTH COMP - Course Vital Signs: Last Vital Signs Temp 97.8 F 11/07/21 15:32 Pulse 89 11/07/21 19:00 Resp 18 11/07/21 19:00 BP 143/87 H 11/07/21 19:00 Pulse Ox 95 11/07/21 19:00 Orders, Labs, Meds: Active Orders 24 hr Category Date Time Status Suicide Precautions [OM.PC] Q30M Oth 11/07/21 17:00 Ordered Suicide Precautions [OM.PC] Q30M Oth 11/07/21 17:30 Ordered Suicide Precautions [OM.PC] Q30M Oth 11/07/21 18:00 Ordered Suicide Precautions [OM.PC] Q30M Oth 11/07/21 18:30 Ordered Suicide Precautions [OM.PC] Q30M Oth 11/07/21 19:00 Ordered Suicide Precautions [OM.PC] Q30M Oth 11/07/21 19:30 Ordered Suicide Precautions [OM.PC] Q30M Oth 11/07/21 20:00 Ordered Suicide Precautions [OM.PC] Q30M Oth 11/07/21 20:30 Ordered Suicide Precautions [OM.PC] Q30M Oth 11/07/21 21:00 Ordered Suicide Precautions [OM.PC] Q30M Oth 11/07/21 21:30 Ordered Suicide Precautions [OM.PC] Q30M Oth 11/07/21 22:00 Ordered Suicide Precautions [OM.PC] Q30M Oth 11/07/21 22:30 Ordered Suicide Precautions [OM.PC] Q30M Oth 11/07/21 23:00 Ordered Suicide Precautions [OM.PC] Q30M Oth 11/07/21 23:30 Ordered Laboratory Tests 11/07/21 11/07/21 11/07/21 Range/Units 15:33 15:33 17:35 WBC 7.85 (4.0-11.0) K/uL RBC 4.74 (4.30-5.90) M/uL Hgb 14.2 (12.0-16.0) g/dL Hct 43.0 (36.0-46.0) % MCV 90.7 (80.0-98.0) fL MCH 30.0 (27.0-32.0) pg MCHC 33.0 (31.0-37.0) g/dL RDW Std Deviation 42.8 (28.0-62.0) fl RDW Coeff of Serena 13 (11.0-15.0) % Plt Count 348 (150-400) K/uL MPV 10.40 (7.40-12.00) fL Neut % (Auto) 59.6 (48.0-80.0) % Lymph % (Auto) 30.6 (16.0-40.0) % [place] % (Auto) 8.4 (0.0-15.0) % Eos % (Auto) 0.9 (0.0-7.0) % Baso % (Auto) 0.5 (0.0-1.5) % Neut # (Auto) 4.7 (1.4-5.7) K/uL Lymph # (Auto) 2.4 (0.6-2.4) K/uL [place] # (Auto) 0.7 (0.0-0.8) K/uL Eos # (Auto) 0.1 (0.0-0.7) K/uL Baso # (Auto) 0.0 (0.0-0.1) K/uL Nucleated RBC % 0.0 /100WBC Nucleated RBCs # 0 K/uL Sodium 142 (136-145) mmol/L Potassium 4.2 (3.5-5.1) mmol/L Chloride 105 (98-107) mmol/L Carbon Dioxide 27.0 (21.0-32.0) mmol/L BUN 12 (7.0-18.0) mg/dL Creatinine 0.9 (0.6-1.0) mg/dL Est Cr Clr Drug Dosing 92.92 mL/min Estimated GFR (MDRD) > 60.0 ml/min Glucose 91 (74-106) mg/dL Calcium 9.1 (8.5-10.1) mg/dL Total Bilirubin 0.3 (0.2-1.0) mg/dL AST 15 (15-37) IU/L ALT 36 (14-63) IU/L Alkaline Phosphatase 73 (46-116) U/L Total Protein 7.5 (6.4-8.2) g/dL Albumin 3.6 (3.4-5.0) g/dL Globulin 3.9 (2.6-4.0) g/dL Albumin/Globulin Ratio 0.9 (0.9-1.6) TSH, Ultra Sensitive 2.25 (0.36-3.74) uIU/mL Urine Color Urine Appearance Urine pH (5.0-8.0) Ur Specific [place] (1.001-1.035) Urine Protein (NEGATIVE) mg/dL Urine Glucose (UA) (NEGATIVE) mg/dL Urine Ketones (NEGATIVE) mg/dL Urine Occult Blood (NEGATIVE) Urine Nitrite (NEGATIVE) Urine Bilirubin (NEGATIVE) Urine Urobilinogen (<2.0) EU/dL Ur Leukocyte Esterase (NEGATIVE) Urine RBC (0-2/HPF) Urine WBC (0-5/HPF) Ur Epithelial Cells (NONE-FEW) Urine Bacteria (NEGATIVE) Urine HCG, Qual (NEGATIVE) Salicylates 0.9 (0-20) mg/dL Urine Opiates Screen (NEGATIVE) Ur Oxycodone Screen (NEGATIVE) Urine Methadone Screen (NEGATIVE) Acetaminophen <2.0 ug/mL Ur Barbiturates Screen (NEGATIVE) Ur Phencyclidine Scrn (NEGATIVE) Ur Amphetamine Screen (NEGATIVE) U Methamphetamines Scrn (NEGATIVE) U Benzodiazepines Scrn (NEGATIVE) U Cocaine Metab Screen (NEGATIVE) U Marijuana (THC) Screen (NEGATIVE) Ethyl Alcohol <3 mg/dL SARS-CoV-2 RNA (JATINDER) NEGATIVE (NEGATIVE) 11/07/21 11/07/21 11/07/21 Range/Units 17:50 17:50 17:50 WBC (4.0-11.0) K/uL RBC (4.30-5.90) M/uL Hgb (12.0-16.0) g/dL Hct (36.0-46.0) % MCV (80.0-98.0) fL MCH (27.0-32.0) pg MCHC (31.0-37.0) g/dL RDW Std Deviation (28.0-62.0) fl RDW Coeff of Serena (11.0-15.0) % Plt Count (150-400) K/uL MPV (7.40-12.00) fL Neut % (Auto) (48.0-80.0) % Lymph % (Auto) (16.0-40.0) % [place] % (Auto) (0.0-15.0) % Eos % (Auto) (0.0-7.0) % Baso % (Auto) (0.0-1.5) % Neut # (Auto) (1.4-5.7) K/uL Lymph # (Auto) (0.6-2.4) K/uL [place] # (Auto) (0.0-0.8) K/uL Eos # (Auto) (0.0-0.7) K/uL Baso # (Auto) (0.0-0.1) K/uL Nucleated RBC % /100WBC Nucleated RBCs # K/uL Sodium (136-145) mmol/L Potassium (3.5-5.1) mmol/L Chloride (98-107) mmol/L Carbon Dioxide (21.0-32.0) mmol/L BUN (7.0-18.0) mg/dL Creatinine (0.6-1.0) mg/dL Est Cr Clr Drug Dosing mL/min Estimated GFR (MDRD) ml/min Glucose (74-106) mg/dL Calcium (8.5-10.1) mg/dL Total Bilirubin (0.2-1.0) mg/dL AST (15-37) IU/L ALT (14-63) IU/L Alkaline Phosphatase (46-116) U/L Total Protein (6.4-8.2) g/dL Albumin (3.4-5.0) g/dL Globulin (2.6-4.0) g/dL Albumin/Globulin Ratio (0.9-1.6) TSH, Ultra Sensitive (0.36-3.74) uIU/mL Urine Color YELLOW Urine Appearance SLT CLOUDY Urine pH 7.0 (5.0-8.0) Ur Specific [place] 1.025 (1.001-1.035) Urine Protein NEGATIVE (NEGATIVE) mg/dL Urine Glucose (UA) NEGATIVE (NEGATIVE) mg/dL Urine Ketones NEGATIVE (NEGATIVE) mg/dL Urine Occult Blood TRACE-INTACT H (NEGATIVE) Urine Nitrite NEGATIVE (NEGATIVE) Urine Bilirubin NEGATIVE (NEGATIVE) Urine Urobilinogen 0.2 (<2.0) EU/dL Ur Leukocyte Esterase NEGATIVE (NEGATIVE) Urine RBC 0-2 (0-2/HPF) Urine WBC 0-3 (0-5/HPF) Ur Epithelial Cells FEW (NONE-FEW) Urine Bacteria 1+ H (NEGATIVE) Urine HCG, Qual NEGATIVE (NEGATIVE) Salicylates (0-20) mg/dL Urine Opiates Screen NEGATIVE (NEGATIVE) Ur Oxycodone Screen NEGATIVE (NEGATIVE) Urine Methadone Screen NEGATIVE (NEGATIVE) Acetaminophen ug/mL Ur Barbiturates Screen NEGATIVE (NEGATIVE) Ur Phencyclidine Scrn NEGATIVE (NEGATIVE) Ur Amphetamine Screen NEGATIVE (NEGATIVE) U Methamphetamines Scrn NEGATIVE (NEGATIVE) U Benzodiazepines Scrn NEGATIVE (NEGATIVE) U Cocaine Metab Screen NEGATIVE (NEGATIVE) U Marijuana (THC) Screen POSITIVE (NEGATIVE) Ethyl Alcohol mg/dL SARS-CoV-2 RNA (JATINDER) (NEGATIVE) Medications Discontinued Medications Generic Name Dose Route Start Last Admin Trade Name Freq PRN Reason Stop Dose Admin Haloperidol Lactate 5 mg 11/07/21 17:23 11/07/21 17:38 Haloperidol Lactate 5 Mg/Ml Sdv IM 11/07/21 17:24 5 mg ONETIME ONE Administration Lorazepam 1 mg 11/07/21 16:04 11/07/21 16:24 Lorazepam 1 Mg Tab PO 11/07/21 16:05 1 mg ONETIME ONE Administration Lorazepam 1 mg 11/07/21 17:22 11/07/21 17:39 Lorazepam 2 Mg/Ml Sdv IM 11/07/21 17:23 1 mg ONETIME ONE Administration Departure - Departure Time of Disposition: 19:21 Disposition: DC/Tfer to Psych Hosp/Unit 65 Clinical Impression: Suicidal ideation, Depressive disorder - Discharge Information Referrals: PCP,None [Primary Care Provider] - Sepsis Event Note (ED) - Focused Exam Vital Signs: Vital Signs Temp Pulse Resp BP Pulse Ox 11/07/21 19:00 89 18 143/87 H 95 11/07/21 18:30 87 18 141/86 H 95 11/07/21 18:00 108 H 20 95 11/07/21 15:32 97.8 F 118 H 18 162/101 H 97 - My Orders Last 24 Hours: My Active Orders 11/07/21 17:00 Suicide Precautions [OM.PC] Q30M 11/07/21 17:30 Suicide Precautions [OM.PC] Q30M 11/07/21 18:00 Suicide Precautions [OM.PC] Q30M 11/07/21 18:30 Suicide Precautions [OM.PC] Q30M 11/07/21 19:00 Suicide Precautions [OM.PC] Q30M 11/07/21 19:30 Suicide Precautions [OM.PC] Q30M 11/07/21 20:00 Suicide Precautions [OM.PC] Q30M 11/07/21 20:30 Suicide Precautions [OM.PC] Q30M 11/07/21 21:00 Suicide Precautions [OM.PC] Q30M 11/07/21 21:30 Suicide Precautions [OM.PC] Q30M 11/07/21 22:00 Suicide Precautions [OM.PC] Q30M 11/07/21 22:30 Suicide Precautions [OM.PC] Q30M 11/07/21 23:00 Suicide Precautions [OM.PC] Q30M 11/07/21 23:30 Suicide Precautions [OM.PC] Q30M - Assessment/Plan Last 24 Hours: My Active Orders 11/07/21 17:00 Suicide Precautions [OM.PC] Q30M 11/07/21 17:30 Suicide Precautions [OM.PC] Q30M 11/07/21 18:00 Suicide Precautions [OM.PC] Q30M 11/07/21 18:30 Suicide Precautions [OM.PC] Q30M 11/07/21 19:00 Suicide Precautions [OM.PC] Q30M 11/07/21 19:30 Suicide Precautions [OM.PC] Q30M 11/07/21 20:00 Suicide Precautions [OM.PC] Q30M 11/07/21 20:30 Suicide Precautions [OM.PC] Q30M 11/07/21 21:00 Suicide Precautions [OM.PC] Q30M 11/07/21 21:30 Suicide Precautions [OM.PC] Q30M 11/07/21 22:00 Suicide Precautions [OM.PC] Q30M 11/07/21 22:30 Suicide Precautions [OM.PC] Q30M 11/07/21 23:00 Suicide Precautions [OM.PC] Q30M 11/07/21 23:30 Suicide Precautions [OM.PC] Q30M
[2021-11-07] MEDS ORDERED: LORazepam 1 MG Tab PO ONE (16:04)
[2021-11-07 16:18] LABS: ACETAMINOPHEN <2.0 ug/mL; BLOOD UREA NITROGEN,BUN 12 mg/dL (7.0-18.0); CHLORIDE,CL 105 mmol/L (98-107); GLUCOSE RANDOM 91 mg/dL (74-106); POTASSIUM,K 4.2 mmol/L (3.5-5.1); SODIUM,NA 142 mmol/L (136-145)
[2021-11-07] MEDS ORDERED: LORazepam 2 MG/ML SDV IM ONE (17:22)
[2021-11-07] MEDS ORDERED: Haloperidol Lactate 5 MG/ML SDV IM ONE (17:23)
== END 2021-11-07 20:17 ==
LOC: MW.ED 15:18
DX: F32.A Depression, unspecified (principal); E66.9 Obesity, unspecified; Z20.822 Contact with and (suspected) exposure to COVID-19; Z68.42 Body mass index [BMI] 45.0-49.9, adult
CPT/HCPCS: 36415; 80053; 80143; 80179; 80305; 80307; 81001; 81025; 84443; 85025; 87635; 96372; 99285; A9270; J1630; J2060; U0002

== ENCOUNTER 2022-02-10 21:53 | Emergency (ER) | payer OTHER ==
[2022-02-10] MEDS ORDERED: Acetaminophen/HYDROcodone 325-10 MG Tab PO ONE (22:38)
== END 2022-02-10 23:52 | disposition home or self-care (01) ==
LOC: MW.ED 21:53
DX: O9A.23 Injury, poisoning and certain other consequences of external causes complicating the puerperium (principal); S83.005A Unspecified dislocation of left patella, initial encounter; Z3A.14 14 weeks gestation of pregnancy; W18.31XA Fall on same level due to stepping on an object, initial encounter
CPT/HCPCS: 73562; 99283; A9270

== ENCOUNTER 2022-08-23 15:15 | Emergency (ER) | payer OTHER | END 2022-08-23 16:48 | disposition home or self-care (01) | LOC: MW.ED 15:15 | DX: Z13.89 Encounter for screening for other disorder (principal); E66.9 Obesity, unspecified; Z68.42 Body mass index [BMI] 45.0-49.9, adult | CPT/HCPCS: 99282 ==

== ENCOUNTER 2023-03-27 01:04 | Emergency (ER) | payer BC ==
[2023-03-27] MEDS ORDERED: Sodium Chloride 0.9% 10 ML Syringe FLUSH PRN (01:22)
[2023-03-27] MEDS ORDERED: Prochlorperazine 10 MG/2 ML SDV IVPUSH ONE (01:22)
[2023-03-27] MEDS ORDERED: Sodium Chloride 0.9% 2.5 ML Syringe FLUSH PRN (01:22)
[2023-03-27] MEDS ORDERED: Iopamidol 755 MG/ML 500 ML Multipack Bottle IVPUSH ONE (01:56)
[2023-03-27 02:09] LABS: CARBON DIOXIDE,CO2 25.6 mmol/L (21.0-32.0); POTASSIUM,K 3.6 mmol/L (3.5-5.1)
== END 2023-03-27 02:18 | disposition left against medical advice (07) ==
LOC: MW.ED 01:04
DX: R10.13 Epigastric pain (principal); K21.9 Gastro-esophageal reflux disease without esophagitis; E66.9 Obesity, unspecified; Z79.899 Other long term (current) drug therapy; Z68.43 Body mass index [BMI] 50.0-59.9, adult
CPT/HCPCS: 36415; 80053; 83690; 83735; 84703; 85025; 96374; 99284; J0780; J3490; 99283

== ENCOUNTER 2024-03-22 22:48 | Emergency (ER) | payer BC, OTHER | END 2024-03-23 00:49 | disposition left against medical advice (07) | LOC: MW.ED 22:48 | DX: Z53.21 Procedure and treatment not carried out due to patient leaving prior to being seen by health care provider (principal) ==

== ENCOUNTER 2024-07-29 19:29 | Emergency (ER) | payer OTHER ==
[2024-07-29 20:20] LABS: BASOPHILS ABSOLUTE AUTO 0.06 K/uL (0.00-0.20); BASOPHILS PERCENT AUTO 0.6 % (0.0-1.0); EOSINOPHILS ABSOLUTE AUTO 0.22 K/uL (0.00-0.45); EOSINOPHILS PERCENT AUTO 2.2 % (0.0-6.0); HEMATOCRIT 42.4 % (37.0-47.0); HEMOGLOBIN 14.1 g/dL (12.0-16.0); IMMATURE GRAN ABSOLUTE AUTO 0.01 K/uL (0.00-0.05); IMMATURE GRAN PERCENT AUTO 0.1 % (0.0-0.4); LYMPHOCYTES ABSOLUTE AUTO 3.93 K/uL (1.00-4.80); LYMPHOCYTES PERCENT AUTO 39.2 % (24.0-44.0); MEAN CORPUSCULAR HEMOGLOBIN 28.9 pg (28.0-32.0); MEAN CORPUSCULAR HGB CONC 33.3 g/dL (32.0-36.0); MEAN CORPUSCULAR VOLUME 86.9 fL (83.0-99.0); MEAN PLATELET VOLUME 10.3 fL (9.4-12.3); MONOCYTES ABSOLUTE AUTO 0.71 K/uL (0.00-0.80); MONOCYTES PERCENT AUTO 7.1 % (0.0-8.0); NEUTROPHILS PERCENT AUTO 50.8 % (41.0-71.0); PLATELET COUNT,PLT 273 K/uL (150-400); RED BLOOD CELL COUNT 4.88 M/uL (4.10-5.30); WHITE BLOOD CELL COUNT,WBC 10.03 K/uL (3.9-11.3)
[2024-07-29] MEDS: Acetaminophen 500 MG Tab PO ONE (20:30)
[2024-07-29] MEDS: Ondansetron 4 MG/2 ML SDV IVPUSH ONE (20:30)
[2024-07-29] MEDS: Sodium Chloride 0.9% 1,000 ML IV ONE ×2 (20:31→22:15)
[2024-07-29] MEDS: Sodium Chloride 0.9% 10 ML Syringe FLUSH PRN (20:31)
[2024-07-29] MEDS: Morphine 4 MG/ML Syringe IVPUSH PRN (20:36)
[2024-07-29 20:55] LABS: A/G RATIO 0.9 (0.9-1.6); ALBUMIN 3.5 g/dL (3.4-5.0); BILIRUBIN TOTAL 0.4 mg/dL (0.2-1.0); CALCIUM 8.7 mg/dL (8.5-10.1); CARBON DIOXIDE,CO2 26.1 mmol/L (21.0-32.0); EST CRCL DRUG DOSING (CG) 81.45 mL/min; POTASSIUM,K 3.4 mmol/L (3.5-5.1); PROTEIN TOTAL,TP 7.3 g/dL (6.4-8.2)
[2024-07-29 21:13] LABS: BILIRUBIN,URINE NEGATIVE (NEGATIVE); COLOR,URINE YELLOW; GLUCOSE,URINE NEGATIVE (NEGATIVE); KETONES,URINE NEGATIVE (NEGATIVE); LEUKOCYTE ESTERASE,URINE NEGATIVE (NEGATIVE); NITRITE,URINE NEGATIVE (NEGATIVE); OCCULT BLOOD,URINE LARGE (NEGATIVE); PROTEIN,URINE TRACE mg/dL (NEGATIVE); UROBILINOGEN,URINE 0.2 EU/dL (<2.0)
[2024-07-29 21:17] LABS: APPEARANCE,URINE CLOUDY
[2024-07-29 21:24] LABS: BACTERIA,URINE 1+ (NEGATIVE); EPITHELIAL CELLS,URINE FEW (NONE-FEW); RBC,URINE 50-75 (0-2/HPF)
[2024-07-29] MEDS: Ketorolac 30 MG/ML SDV IVPUSH ONE (22:22)
[2024-07-29] MEDS: Iopamidol 755 MG/ML 500 ML Multipack Bottle IVPUSH ONE (22:28)
[2024-07-29] MEDS: cefTRIAXone 2 GM in Sodium Chloride 0.9% 50 ML IV ONE (23:39)
== END 2024-07-30 00:39 | disposition home or self-care (01) ==
LOC: MW.ED 19:29
DX: N13.2 Hydronephrosis with renal and ureteral calculous obstruction (principal); N30.01 Acute cystitis with hematuria; K21.9 Gastro-esophageal reflux disease without esophagitis; E66.9 Obesity, unspecified; Z87.59 Personal history of other complications of pregnancy, childbirth and the puerperium; Z79.899 Other long term (current) drug therapy; Z68.43 Body mass index [BMI] 50.0-59.9, adult
CPT/HCPCS: 36415; 74177; 76830; 80053; 81001; 81025; 83605; 83690; 85025; 96361; 96365; 96375; 99284; A9270; J0696; J2270; J2405; J3490; J7030; Q9967

== ENCOUNTER 2025-06-29 03:50 | Emergency (ER) | payer OTHER | END 2025-06-29 04:39 | disposition home or self-care (01) | LOC: MW.ED 03:50 | DX: S80.862A Insect bite (nonvenomous), left lower leg, initial encounter (principal); S80.861A Insect bite (nonvenomous), right lower leg, initial encounter; S30.861A Insect bite (nonvenomous) of abdominal wall, initial encounter; S30.860A Insect bite (nonvenomous) of lower back and pelvis, initial encounter; Z79.899 Other long term (current) drug therapy; W57.XXXA Bitten or stung by nonvenomous insect and other nonvenomous arthropods, initial encounter | CPT/HCPCS: 99282; A9270; 99283 ==

== ENCOUNTER 2025-09-23 12:18 | Emergency (ER) | payer OTHER | END 2025-09-23 14:15 | disposition home or self-care (01) | LOC: MW.ED 12:18 | DX: F41.9 Anxiety disorder, unspecified (principal); K21.9 Gastro-esophageal reflux disease without esophagitis; Z79.899 Other long term (current) drug therapy; E66.9 Obesity, unspecified; Z68.43 Body mass index [BMI] 50.0-59.9, adult | CPT/HCPCS: 81025; 99284; A9270 ==